=== PATIENT | male | born 1960 | race Caucasian/White ===

== ENCOUNTER 2017-09-28 07:28 | Emergency (ER) | payer BC, MEDICAID, OTHER ==
[~2017-09-28] VITALS: Ht 170.2 cm; Wt 58.7 kg
[~2017-09-28 07:28] MED LIST: OMEP10CA2 PO
[2017-09-28] MEDS ORDERED: SODIUM CHLORIDE 0.9% 1,000 ML IV ONE (07:43)
[2017-09-28] MEDS ORDERED: MORPHINE SULFATE 4 MG/ML, 1ML IVPush ONE (08:00)
[2017-09-28] MEDS ORDERED: ONDANSETRON 2MG/ML, 2ML IVPush ONE (08:00)
[2017-09-28] MEDS ORDERED: SODIUM CHLORIDE FLUSH 10ML SYR IVF ONE (08:00)
[2017-09-28 08:12] LABS: MEAN CORPUSCULAR HEMOGLOBIN 32.7 pg (27.5-34.5); MEAN PLATELET VOLUME 7.9 fL (7.4-10.4)
[2017-09-28 08:16] LABS: MEAN CORPUSCULAR HGB CONC 34.7 g/dL (33.2-36.2); MEAN CORPUSCULAR VOLUME 94.2 fL (81-97); PLATELET COUNT 311 x10^3/uL (130-400); RED CELL DISTRIBUTION WIDTH 13.1 % (9.4-14.8)
[2017-09-28] MEDS ORDERED: ONDANSETRON 2MG/ML, 2ML ONE (08:22)
[2017-09-28] MEDS ORDERED: MORPHINE SULFATE 4 MG/ML, 1ML ONE (08:23)
[2017-09-28 08:26] LABS: ALANINE AMINOTRANSFERASE 36 U/L (12-78); ALBUMIN 4.4 g/dL (3.4-5.0); ANION GAP 8 mmol/L (5-15); CALCIUM 9.8 mg/dL (8.5-10.1); CHLORIDE 105 mmol/L (98-107); CREATININE 1.08 mg/dL (0.7-1.3)
[2017-09-28 08:28] LABS: ALKALINE PHOSPHATASE 57 U/L (45-117); BILIRUBIN,TOTAL 1.4 mg/dL (0.2-1.0); TOTAL PROTEIN 8.7 g/dL (6.4-8.2)
[2017-09-28 08:33] LABS: BASOPHILS # (AUTO) 0.07 x10^3/uL (0-0.1); BASOPHILS % (AUTO) 1 % (0-1); EOSINOPHILS # (AUTO) 0.01 x10^3/uL (0-0.4); EOSINOPHILS % (AUTO) 0 % (1-7); LYMPHOCYTES # (AUTO) 1.85 x10^3/uL (1-3.4); LYMPHOCYTES % (AUTO) 14 % (22-44); MD SCAN; MONOCYTES % (AUTO) 13 % (2-9); NEUTROPHILS % (AUTO) 73 % (42-75)
[2017-09-28] MEDS ORDERED: OMNIPAQUE 350 MG/ML, 100ML BOTTLE ONE (09:24)
[2017-09-28 11:22] VITALS: BP 145/73
== END 2017-09-28 11:25 | disposition home or self-care (01) ==
LOC: ED 08:40
DX: S22.42XA Multiple fractures of ribs, left side, initial encounter for closed fracture (principal); S20.212A Contusion of left front wall of thorax, initial encounter; S30.1XXA Contusion of abdominal wall, initial encounter; W18.2XXA Fall in (into) shower or empty bathtub, initial encounter; Y93.89 Activity, other specified; Y92.098 Other place in other non-institutional residence as the place of occurrence of the external cause; Y99.8 Other external cause status
CPT/HCPCS: 36415; 71260; 74177; 80053; 83690; 85025; 96374; 96375; 99285; J2405; J7030; Q9967